=== PATIENT | female | born 1955 | race Caucasian/White ===

== ENCOUNTER 2023-03-27 07:04 | Day surgery (SDC) | payer MEDICARE, OTHER ==
[~2023-03-27] VITALS: Ht 165.1 cm; Wt 122.7 kg
[~2023-03-27 07:04] MED LIST: SODIUM CHLORIDE 0.9% 1,000 ML IV ONE; SODIUM CHLORIDE 0.9% 1,000 ML ONE
[2023-03-27] MEDS ORDERED: BENZOCAINE 20% 50 MCG/SPRAY 57 GM TP ONE (07:05)
[2023-03-27] MEDS ORDERED: LIDOCAINE 2% 11 ML JELLY TP ONE (07:05)
[2023-03-27] MEDS ORDERED: LIDOCAINE 4% 50 ML SOLUTION TP ONE (07:05)
[2023-03-27] MEDS ORDERED: ALBUTEROL SULFATE 2.5 MG/0.5 ML NEB SOLUTION NEB ONE (07:05)
[2023-03-27] MEDS ORDERED: FLUT16H NASAL (07:15)
[2023-03-27] MEDS ORDERED: ALBU18HF12 IH (07:15)
[2023-03-27] MEDS ORDERED: LAMO25TA25 PO ×2 (07:15→07:28)
[2023-03-27] MEDS ORDERED: ESCI10 PO (07:15)
[2023-03-27] MEDS ORDERED: ATOR10TA69 PO (07:15)
[2023-03-27] MEDS ORDERED: DULO-113 PO (07:15)
[2023-03-27] MEDS ORDERED: MONT-40 PO (07:15)
[2023-03-27] MEDS ORDERED: FAMO40TA7 PO (07:15)
[2023-03-27] MEDS ORDERED: CHOL200074 PO (07:15)
[2023-03-27] MEDS ORDERED: FLUT1DIS26 PO (07:15)
[2023-03-27] MEDS ORDERED: TELM80TA10 PO (07:15)
[2023-03-27] MEDS ORDERED: PRED-729 PO (07:15)
[2023-03-27] MEDS ORDERED: MIDAZOLAM HCL 2 MG/2 ML VIAL ONE (07:57)
[2023-03-27] MEDS ORDERED: FentaNYL CITRATE PF 100 MCG/2 ML VIAL ONE (07:58)
[2023-03-27] MEDS ORDERED: MethylPREDNISolone SOD SUCC 125 MG/2 ML VIAL ONE (08:59)
[2023-03-27] MEDS ORDERED: MethylPREDNISolone SOD SUCC 125 MG/2 ML VIAL IVP ONE (09:15)
[2023-03-27 09:30] VITALS: PULSE 75; RESP 23; O2SAT 94
== END 2023-03-27 11:00 | disposition home or self-care (01) ==
LOC: SURGERY 07:04
PROVIDERS: ATTEND Internal Medicine Critical Care Medicine
DX: J38.4 Edema of larynx (principal); B37.0 Candidal stomatitis; G47.30 Sleep apnea, unspecified; F32.A Depression, unspecified; E78.00 Pure hypercholesterolemia, unspecified; Z79.899 Other long term (current) drug therapy
CPT/HCPCS: 31623; 88112; 87206; 87101; 87220; 87070; 31624; 94640; 71045; 87015; J3010; J2250; J2930; Q9967; J7030; J7613; Z7610